=== PATIENT | female | born 2000 | race Two or more races ===

== ENCOUNTER → 2022-05-05 | Outpatient (REF) ==
[2022-05-05 13:36] LABS: RSV AMPLIFICATION NEGATIVE (NEGATIVE)
== END ==
LOC: M LABSMTC 09:58
PROVIDERS: ATTEND Family Medicine
DX: Z11.52 Encounter for screening for COVID-19 (principal)

== ENCOUNTER → 2023-02-03 | Outpatient (CLI) | payer OTHER ==
[2023-02-03 14:45] LABS: HEMATOCRIT 38.3 % (36.0-47.0); HEMOGLOBIN 12.5 g/dl (12.0-15.5); MEAN CORPUSCULAR HEMOGLOBIN 29.3 pg (27.0-33.0); MEAN CORPUSCULAR HGB CONC 32.6 g/dl (32.0-36.5); MEAN CORPUSCULAR VOLUME 89.9 fl (80.0-96.0); PLATELET COUNT, AUTOMATED 219 10^3/uL (150-450); RED BLOOD COUNT 4.26 10^6/uL (4.00-5.40); WHITE BLOOD COUNT 10.4 10^3/uL (4.0-10.0)
[2023-02-03 15:24] LABS: SICKLE CELL SCREEN NEGATIVE (NEGATIVE)
[2023-02-03 15:33] LABS: GC DNA AMPLIFICATION NEGATIVE (NEGATIVE)
[2023-02-03 16:06] LABS: HIV 1&2 SCREEN NEGATIVE (NEGATIVE)
[2023-02-03 16:14] LABS: HEPATITIS C VIRUS ABY INDEX 0.17 INDEX (<0.8)
== END ==
LOC: M PLALAB 09:46
PROVIDERS: ATTEND Advanced Practice Midwife
DX: Z34.01 Encounter for supervision of normal first pregnancy, first trimester (principal); Z3A.00 Weeks of gestation of pregnancy not specified
CPT/HCPCS: 36415; 85027; 85660; 86762; 86780; 86803; 86900; 86901; 87086; 87340; 87389; 87810; 87850; G0463

== ENCOUNTER → 2023-03-25 | Outpatient (CLI) | payer OTHER | LOC: M RAD 10:36 | PROVIDERS: ATTEND Midwife | DX: Z34.82 Encounter for supervision of other normal pregnancy, second trimester (principal); Z3A.19 19 weeks gestation of pregnancy ==

== ENCOUNTER → 2023-05-26 | Outpatient (CLI) | payer OTHER ==
[2023-05-26 13:32] LABS: HEMATOCRIT 33.3 % (36.0-47.0); MEAN CORPUSCULAR HEMOGLOBIN 29.9 pg (27.0-33.0); MEAN CORPUSCULAR VOLUME 90.5 fl (80.0-96.0); PLATELET COUNT, AUTOMATED 189 10^3/uL (150-450); RED BLOOD COUNT 3.68 10^6/uL (4.00-5.40)
== END ==
LOC: M LAB 12:45
PROVIDERS: ATTEND Midwife
DX: Z34.00 Encounter for supervision of normal first pregnancy, unspecified trimester (principal)

== ENCOUNTER → 2024-10-11 | Outpatient (CLI) | payer OTHER | LOC: M WHC 11:31 | PROVIDERS: ATTEND Midwife | DX: Z34.81 Encounter for supervision of other normal pregnancy, first trimester (principal); Z3A.08 8 weeks gestation of pregnancy ==